=== PATIENT | female | born 1975 | race African-American/Black ===

== ENCOUNTER 2022-12-10 10:52 | Outpatient (CLI) | payer OTHER, SELFPAY ==
--- NOTE | ~2022-12-10 | XR_ITS ---
EXAMINATION: XR chest 2V 12/10/2022 11:34 INDICATION: History of smoking. Tobacco use. PROCEDURE: 2 view chest COMPARISON: No prior studies for comparison. FINDINGS: The lungs are clear. The cardiomediastinal silhouette is within normal limits. There are no pleural effusions. There is no pneumothorax suspected. IMPRESSION: 1: NO ACUTE CARDIOPULMONARY DISEASE. Reviewed, dictated and finalized at location B. [employer]
[2022-12-10 12:40] LABS: Hematocrit 39.5 % (37.0-47.0); Hemoglobin 12.8 g/dL (12.0-15.0); Mean Corpuscular HGB Conc 32.4 g/dl (32-36); Mean Corpuscular Volume 89.4 fl (80-100); Mean Platelet Volume 10.3 fl (7.4-10.4); Platelet Count Result 273 k/mm3 (150-375); Red Blood Count 4.42 M/mm3 (4.2-5.4); Red Cell Distribution Width 12.8 % (11.5-14.5); White Blood Count 6.8 K/mm3 (4.5-10.0)
[2022-12-10 12:46] LABS: Appearance Urine Clear (Clear); Bilirubin Urine Negative (Negative); Blood Urine Negative (Negative); Color Urine Yellow (Yellow); Glucose Urine UA Negative (Negative); Ketones Urine Trace mg/dL (Negative); Leukocyte Esterase Ur Negative LEU/UL (NEGATIVE); Nitrate Urine Negative (Negative); Protein Urine Trace mg/dL (Negative); Specific Grav Ur 1.025 (1.001-1.035); Urobilinogen Urine 0.2 mg/dL (<2.0)
[2022-12-10 12:54] LABS: Hemoglobin A1C 4.9 % (<5.7)
[2022-12-10 12:55] LABS: Alanine Aminotransferase 18 U/L (6-35); Alkaline Phosphatase 63 U/L (38-126); Amorphous Sediment Urine Few; Anion Gap 5 mmol/L (8-16); Aspartate Amino Transferase 23 U/L (14-36); Bacteria Urine Trace /hpf; Bilirubin,Total 0.4 mg/dL (0.2-1.3); Blood Urea Nitrogen 8 mg/dL (7-17); Calcium 8.2 mg/dL (8.4-10.2); Carbon Dioxide 25 mmol/L (22-30); Chloride 106 mmol/L (98-107); Cholesterol 170 mg/dL (0-200); Estimated Glomerular Filt Rate > 60; Glucose 78 mg/dL (65-110); HDL Direct 48 mg/dL; Mucus Urine Heavy /lpf; Potassium 3.4 mmol/L (3.4-5.0); Sodium 136 mmol/L (137-145); Squamous Epithelial Cell Urine Many /hpf (Few); Triglycerides 69 mg/dL (<150)
[2022-12-10 12:56] LABS: Add Urine Microscopic? YES
[2022-12-10 12:57] LABS: Creatinine Urine 210.1 mg/dL
[2022-12-10 13:06] LABS: Microalbumin Urine Random < 6.0 mg/L (0-16.7)
[2022-12-10 13:07] LABS: LDL Cholesterol Direct 87 mg/dL; MALB Creatinine Ratio < 2.9 mg/g (0-30)
[2022-12-10 13:10] LABS: Free T4 Free Thyroxine 0.93 ng/mL (0.78-2.19); Vitamin D 25 Hydroxy 13.2 ng/mL
[2022-12-13 19:21] LABS: H pylori, Urea Breath NOT DETECTED (NOT DETECTED)
== END 2022-12-10 10:53 | disposition home or self-care (01) ==
LOC: ANHIMG 10:59
PROVIDERS: PCP Emergency Medicine; Visit Provider Emergency Medicine
DX: Z00.00 Encounter for general adult medical examination without abnormal findings (principal); K21.9 Gastro-esophageal reflux disease without esophagitis; I10 Essential (primary) hypertension; B35.1 Tinea unguium; Z87.891 Personal history of nicotine dependence
CPT/HCPCS: 36415; 71046; 80053; 80061; 81001; 82043; 82306; 83013; 83036; 84439; 84443; 85027

== ENCOUNTER 2023-08-03 11:58 | Outpatient (CLI) | payer OTHER, SELFPAY ==
--- NOTE | ~2023-08-03 | MMUS_ITS ---
EXAMINATION: MM diagnostic lino BI w brielle, US breast LT complete HISTORY: Left breast lump TECHNIQUE: Additional 3-D tomosynthesis images of the breasts were performed and synthetic 2-D images were generated. CAD analysis was submitted and interpreted. High resolution complete left breast ult rasound was performed. COMPARISON: No prior studies for comparison. BREAST PARENCHYMAL COMPOSITION: Breast composed of scattered areas of fibroglandular density FINDINGS: MAMMOGRAPHIC FINDINGS: There is a focal mass in the upper inner quadrant of the left breast, middle third. There is lymph no de enlargement in the right axilla on MLO view. ULTRASOUND: Complete US of all 4 quadrants of the left breast and retroareolar region was reviewed. At 10:00, 8 c m from the nipple there is an 8 mm cyst corresponding to the mammographic finding. No suspicious mass es in the left breast. IMPRESSION: 1. No evidence for malignancy in the left breast. Benign finding. Right axillary lymphadenopathy. 2. Right axillary ultrasound recommended. BI-RADS Category 0: Incomplete: Needs additional imaging evaluation. Reviewed, dictated and finalized at location A. IMPRESSION: 1. No evidence for malignancy in the left breast. Benign finding. Right axillar y lymphadenopathy. 2. Right axillary ultrasound recommended. BI-RADS Category 0: Incomplete: Needs additional imaging evaluation.
== END 2023-08-03 11:59 | disposition home or self-care (01) ==
LOC: ANHIMG 12:01
PROVIDERS: PCP Emergency Medicine; Visit Provider Emergency Medicine
DX: R92.8 Other abnormal and inconclusive findings on diagnostic imaging of breast (principal)
CPT/HCPCS: 76641; 77062; 77066; G0279

== ENCOUNTER 2023-08-19 12:19 | Outpatient (CLI) | payer OTHER, SELFPAY | END 2023-08-19 12:20 | disposition home or self-care (01) | PROVIDERS: PCP Emergency Medicine; Visit Provider Emergency Medicine | DX: R31.9 Hematuria, unspecified (principal) | CPT/HCPCS: 88108 ==